=== PATIENT | male | born 1985 | race Caucasian/White ===

== ENCOUNTER 2018-06-15 13:54 | Emergency (ER) | payer SELFPAY ==
[2018-06-15] MEDS ORDERED: LIDOCAINE 1% 20 ML MDV ONE (14:41)
[2018-06-15] MEDS ORDERED: LIDOCAINE 1% W/EPI 1:100,000 MDV 50 ML VIAL ONE (14:41)
--- NOTE | 2018-06-15 15:00 | ER ---
Nurse's Notes [facility] Name: Juan J March Age: 32 yrs Sex: Male : 1985 Arrival Date: 06/15/2018 Time: 13:57 Bed 14 Private MD: Diagnosis: Cutaneous abscess of back [any part, except buttock];Pilonidal sinus with abscess;Pilonidal cyst with abscess Presentation: 06/15 13:59 Presenting complaint: Patient states: pilonidal cyst started yesterday. Transition of sv care: patient was not received from another setting of care. Onset of symptoms was June 14, 2018. Care prior to arrival: None. 13:59 Method Of Arrival: Ambulatory sv 13:59 Acuity: EDUARDO 3 sv 14:26 Risk Assessment: Do you want to hurt yourself or someone else? Patient reports no jl7 desire to harm self or others. Initial Sepsis Screen: Does the patient meet any 2 criteria? No. Patient's initial sepsis screen is negative. Does the patient have a suspected source of infection? No. Patient's initial sepsis screen is negative. Triage Assessment: 14:01 General: Appears in no apparent distress. uncomfortable, Behavior is calm, cooperative, sv appropriate for age. Pain: Complains of pain in buttocks. Neuro: Level of Consciousness is awake, alert, obeys commands, Oriented to person, place, time, situation, Gait is steady. Respiratory: Respiratory effort is even, unlabored, Respiratory pattern is regular, symmetrical. Historical: - Allergies: 14:01 Morphine; sv - PMHx: 14:01 Pilonidal cyst; sv - PSHx: 14:01 None; sv - Immunization history:: Adult Immunizations not up to date. - Social history:: Smoking status: unknown. - Ebola Screening: : No symptoms or risks identified at this time. - Family history:: not pertinent. Screenin:26 Abuse screen: Denies threats or abuse. Denies injuries from another. Nutritional jl7 screening: No deficits noted. Tuberculosis screening: No symptoms or risk factors identified. Fall Risk None identified. Assessment: 14:26 General: Appears in no apparent distress. uncomfortable, Behavior is calm, cooperative, jl7 appropriate for age. Pain: Complains of pain in coccyx Pain does not radiate. Pain currently is 8 out of 10 on a pain scale. Neuro: Level of Consciousness is awake, alert, obeys commands, Oriented to person, place, time, situation. Cardiovascular: Patient's skin is warm and dry. Respiratory: Airway is patent Respiratory effort is even, unlabored, Respiratory pattern is regular, symmetrical. Derm: Skin is pink, warm \T\ dry. Abscess located on coccyx is half dollar sized, has no drainage, is hot to touch, is red, is raised. 15:30 Reassessment: Patient appears in no apparent distress at this time. Patient and/or jl7 family updated on plan of care and expected duration. Pain level reassessed. Patient is alert, oriented x 3, equal unlabored respirations, skin warm/dry/pink. Vital Signs: 14:00 BP 152 / 96; Pulse 84; Resp 16; Pulse Ox 95% ; Weight 90.72 kg; Height 5 ft. (152.40 sv cm); Pain 8/10; 15:30 BP 149 / 91; Pulse 83; Resp 16; Pulse Ox 100% on R/A; Pain 3/10; jl7 14:00 Body Mass Index 39.06 (90.72 kg, 152.40 cm) sv ED Course: 13:57 Patient arrived in ED. mr 14:00 Triage completed. sv 14:01 Arm band placed on. 14:22 Manish Reza, CATRACHITO is Primary Nurse. [facility] 14:26 Patient has correct armband on for positive identification. Placed in gown. Bed in low jl7 position. Call light in reach. Side rails up X 1. 14:27 Jhon Begum MD is Attending Physician. [facility] 14:58 Nathan Velarde MD is Referral Physician. [facility] 15:40 Assist provider with I \T\ D: of an abscess on pilonidal cyst Set up I\T\D tray. Performed jl 7 by Jhon Begum MD Culture sent to lab. Wound packed. iodoform gauze, Dressing with 4X4s, Patient tolerated well. Patient did not have IV access during this emergency room visit. Administered Medications: 15:07 Drug: Lidocaine-Epinephrine -1%: (1:100,000) 10 ml {Note: administered by Dr. sedrick Begum.} Volume: 20 ml; Route: Infiltration; 15:39 Follow up: Response: No adverse reaction jl7 15:39 Drug: Doxycycline 200 mg Route: PO; jl7 15:39 Follow up: Response: Medication administered at discharge. jl7 15:39 Drug: Bactrim 160 mg-800 mg (DS) 160 mg Route: PO; jl7 15:39 Follow up: Response: Medication administered at discharge. jl7 Outcome: 14:59 Discharge ordered by . amy 15:40 Discharged to home ambulatory, with family. sedrick 15:40 Condition: stable 15:40 Discharge instructions given to patient, family, Instructed on discharge instructions, follow up and referral plans. medication usage, Demonstrated understanding of instructions, follow-up care, medications, Prescriptions given X 3. 15:45 Patient left the ED. jl7 Signatures: Rufina Phipps, RN Jhon Gresham MD MD cha Rivera, Mary mr Leal, Jahala, RN RN jl7 Corrections: (The following items were deleted from the chart) 15:43 15:40 No provider procedures requiring assistance completed. jl7 jl7
--- NOTE | 2018-06-15 15:00 | EDPHYS ---
Physician Documentation [facility] Name: Juan J March Age: 32 yrs Sex: Male : 1985 Arrival Date: 06/15/2018 Time: 13:57 Bed 14 Private MD: ED Physician Jhon Begum HPI: 06/15 14:55 This 32 yrs old Male presents to ER via Ambulatory with complaints of Abscess.amy 14:55 The patient presents with an abscess of the coccyx, The patient presents with amy cellulitis of the coccyx. Description: erythematous, hot, swollen. Onset: The symptoms/episode began/occurred 1 week(s) ago. Associated signs and symptoms: The patient has no apparent associated signs or symptoms. Severity of symptoms: At their worst the symptoms were mild, moderate, in the emergency department the symptoms are unchanged. The patient has experienced similar episodes in the past, several times. Historical: - Allergies: 14: Morphine; sv - PMHx: 14:01 Pilonidal cyst; sv - PSHx: 14:01 None; sv - Immunization history:: Adult Immunizations not up to date. - Social history:: Smoking status: unknown. - Ebola Screening: : No symptoms or risks identified at this time. - Family history:: not pertinent. ROS: 14:55 Constitutional: Negative for fever, chills, and weight loss, Eyes: Negative for injury, amy pain, redness, and discharge, ENT: Negative for injury, pain, and discharge, Neck: Negative for injury, pain, and swelling, Cardiovascular: Negative for chest pain, palpitations, and edema, Respiratory: Negative for shortness of breath, cough, wheezing, and pleuritic chest pain, Abdomen/GI: Negative for abdominal pain, nausea, vomiting, diarrhea, and constipation, Back: Negative for injury and pain, : Negative for injury, bleeding, discharge, and swelling, MS/Extremity: Negative for injury and deformity, Neuro: Negative for headache, weakness, numbness, tingling, and seizure, Psych: Negative for depression, anxiety, suicide ideation, homicidal ideation, and hallucinations, Allergy/Immunology: Negative for hives, rash, and allergies, Endocrine: Negative for neck swelling, polydipsia, polyuria, polyphagia, and marked weight changes, Hematologic/Lymphatic: Negative for swollen nodes, abnormal bleeding, and unusual bruising. 14:55 Skin: Positive for abscess, swelling, of the coccyx. Exam: 14:55 Constitutional: This is a well developed, well nourished patient who is awake, alert, amy and in no acute distress. Head/Face: Normocephalic, atraumatic. Eyes: Pupils equal round and reactive to light, extra-ocular motions intact. Lids and lashes normal. Conjunctiva and sclera are non-icteric and not injected. Cornea within normal limits. Periorbital areas with no swelling, redness, or edema. ENT: Nares patent. No nasal discharge, no septal abnormalities noted. Tympanic membranes are normal and external auditory canals are clear. Oropharynx with no redness, swelling, or masses, exudates, or evidence of obstruction, uvula midline. Mucous membranes moist. Neck: Trachea midline, no thyromegaly or masses palpated, and no cervical lymphadenopathy. Supple, full range of motion without nuchal rigidity, or vertebral point tenderness. No Meningismus. Chest/axilla: Normal chest wall appearance and motion. Nontender with no deformity. No lesions are appreciated. Cardiovascular: Regular rate and rhythm with a normal S1 and S2. No gallops, murmurs, or rubs. Normal PMI, no JVD. No pulse deficits. Respiratory: Lungs have equal breath sounds bilaterally, clear to auscultation and percussion. No rales, rhonchi or wheezes noted. No increased work of breathing, no retractions or nasal flaring. Abdomen/GI: Soft, non-tender, with normal bowel sounds. No distension or tympany. No guarding or rebound. No evidence of tenderness throughout. Back: No spinal tenderness. No costovertebral tenderness. Full range of motion. Male : Normal genitalia with no discharge or lesions. 14:55 Skin: abscess, that is moderate sized, of the coccyx, cellulitis, that is mild, that is moderate. Vital Signs: 14:00 BP 152 / 96; Pulse 84; Resp 16; Pulse Ox 95% ; Weight 90.72 kg; Height 5 ft. (152.40 sv cm); Pain 8/10; 15:30 BP 149 / 91; Pulse 83; Resp 16; Pulse Ox 100% on R/A; Pain 3/10; jl7 14:00 Body Mass Index 39.06 (90.72 kg, 152.40 cm) MDM: 14:27 Patient medically screened. [facility] 14:57 Data reviewed: vital signs, nurses notes. [facility] 06/15 15:41 Order name: Wound Culture [facility] [place] 06/15 14:55 Order name: Suture Tray at Bedside; Complete Time: 15:08 [facility] 06/15 14:55 Order name: Dressing - Wound; Complete Time: 15:08 [facility] 06/15 14:55 Order name: Gloves, Sterile; Complete Time: 15:08 [facility] Administered Medications: 15:07 Drug: Lidocaine-Epinephrine -1%: (1:100,000) 10 ml {Note: administered by Dr. sedrick Begum.} Volume: 20 ml; Route: Infiltration; 15:39 Follow up: Response: No adverse reaction [facility] [place] 15:39 Drug: Doxycycline 200 mg Route: PO; [facility] [place] 15:39 Follow up: Response: Medication administered at discharge. [facility] [place] 15:39 Drug: Bactrim 160 mg-800 mg (DS) 160 mg Route: PO; [facility] [place] 15:39 Follow up: Response: Medication administered at discharge. [facility] [place] Disposition: 06/15/18 14:59 Discharged to Home. Impression: Cutaneous abscess of back [any part, except buttock], Pilonidal sinus with abscess, Pilonidal cyst with abscess. - Condition is Stable. - Discharge Instructions: Skin Abscess, Incision and Drainage, Pilonidal Cyst, Skin Abscess, [id number], Incision and Drainage of a Pilonidal Cyst, Care After, Incision and Drainage, Care After. - Prescriptions for Doxycycline Hyclate 100 mg Oral Tablet - take 1 tablet by ORAL route every 12 hours; 20 tablet. Tramadol 50 mg Oral Tablet - take 1 tablet by ORAL route every 8 hours as needed; 24 tablet. Bactrim DS 800- 160 mg Oral Tablet - take 1 tablet by ORAL route every 12 hours for 7 days; 14 tablet. - Medication Reconciliation Form, Thank You Letter, Antibiotic Education, Prescription Opioid Use, Work release form form. - Follow up: Nathan Velarde MD; When: 2 - 3 days; Reason: Recheck today's complaints, Continuance of care, Re-evaluation by your physician. - Problem is new. - Symptoms have improved. Signatures: Dispatcher [employer] Rufina Dubois RN RN sv Anderson, Corey, MD MD cha Reza, Jahala, RN RN jl7 Corrections: (The following items were deleted from the chart) 15:45 14:59 06/15/2018 14:59 Discharged to Home. Impression: Cutaneous abscess of back [any jl7 part, except buttock]; Pilonidal sinus with abscess; Pilonidal cyst with abscess. Condition is Stable. Forms are Medication Reconciliation Form, Thank You Letter, Antibiotic Education, Prescription Opioid Use. Follow up: Nathan Velarde; When: 2 - 3 days; Reason: Recheck today's complaints, Continuance of care, Re-evaluation by your physician. Problem is new. Symptoms have improved. amy
[2018-06-15] MEDS ORDERED: DOXYCYCLINE 100 MG CAP PO ONE (15:27)
[2018-06-15] MEDS ORDERED: SMZ./TMP. 800/160 MG TABLET ONE (15:27)
== END 2018-06-15 15:45 | disposition home or self-care (01) ==
LOC: ER 13:54
PROC: 0H96XZZ Drainage of Back Skin, External Approach (ICD-10-PCS; principal; 2018-06-15)
DX: L02.219 Cutaneous abscess of trunk, unspecified (principal); L05.01 Pilonidal cyst with abscess; Z88.5 Allergy status to narcotic agent
CPT/HCPCS: 87070; 87205; 99284

== ENCOUNTER 2018-07-05 12:25 | Emergency (ER) | payer SELFPAY ==
[2018-07-05] MEDS ORDERED: TETRACAINE HCL 0.5% 2ML OPTH ONE (13:15)
[2018-07-05] MEDS ORDERED: Ringers Lactate 1,000 ML IV ONE (13:50)
--- NOTE | 2018-07-05 14:57 | ER ---
Nurse's Notes [facility] Name: Juan J March Age: 32 yrs Sex: Male : 1985 Arrival Date: 07/05/2018 Time: 12:29 Bed 25 Private MD: None, None Diagnosis: Keratitis-Right eye, ultraviolet Presentation: 07/05 12:31 Presenting complaint: Patient states: I was doing some fabrication on my car last night la1 and my right eye started hurting. This morning when I took my contact out the pain is much worse. Pt states vision is at baseline but currently has right eye taped shut. Transition of care: patient was not received from another setting of care. Onset of symptoms was July 05, 2018. Risk Assessment: Do you want to hurt yourself or someone else? Patient reports no desire to harm self or others. Initial Sepsis Screen: Does the patient meet any 2 criteria? No. Patient's initial sepsis screen is negative. Does the patient have a suspected source of infection? No. Patient's initial sepsis screen is negative. Care prior to arrival: None. 12:31 Method Of Arrival: Ambulatory la1 12:31 Acuity: EDUARDO 4 la1 Historical: - Allergies: 12:32 Morphine; la1 - PMHx: 12:32 Pilonidal cyst; la1 - Immunization history:: Adult Immunizations up to date. - Social history:: Smoking status: Patient uses tobacco products, smokes one pack cigarettes per day. - Ebola Screening: : No symptoms or risks identified at this time. Screenin:10 Abuse screen: Denies threats or abuse. Nutritional screening: No deficits noted. tl3 Tuberculosis screening: No symptoms or risk factors identified. Fall Risk None identified. Assessment: 13:10 General: Appears uncomfortable, well groomed, well developed, well nourished, Behavior tl3 is calm, cooperative, appropriate for age. Pain: Complains of pain in right eye Pain at worst was 10 out of 10 on a pain scale. Neuro: Level of Consciousness is awake, alert, obeys commands, Oriented to person, place, time, situation, Appropriate for age. Cardiovascular: Patient's skin is warm and dry. Respiratory: Airway is patent Respiratory effort is even, unlabored, Respiratory pattern is regular, symmetrical. GI: No signs and/or symptoms were reported involving the gastrointestinal system. : No signs and/or symptoms were reported regarding the genitourinary system. 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 14:00 Reassessment: No changes from previously documented assessment. Patient and/or family tl3 updated on plan of care and expected duration. Pain level reassessed. Patient is alert, oriented x 3, equal unlabored respirations, skin warm/dry/pink. no needs at this time. 15:29 Reassessment: Patient appears in no apparent distress at this time. No changes from tl3 previously documented assessment. Patient and/or family updated on plan of care and expected duration. Pain level reassessed. Patient is alert, oriented x 3, equal unlabored respirations, skin warm/dry/pink. pt being discharged Patient states feeling better. Vital Signs: 12:32 BP 143 / 91; Pulse 71; Resp 18; Temp 98.4; Pulse Ox 98% on R/A; Weight 90.72 kg; Height la1 5 ft. 8 in. (172.72 cm); 14:55 BP 149 / 95 RA (auto/reg); Pulse 86; Pulse Ox 99% on R/A; jp3 12:32 Body Mass Index 30.41 (90.72 kg, 172.72 cm) la1 Visual Acuity: 14:39 Left Eye Visual acuity 20/25, ; Right Eye Visual acuity 20/200, ; Without Lenses; tl3 ED Course: 12:29 Patient arrived in ED. mr 12:29 None, None is Private Physician. mr 12:32 Triage completed. la1 12:33 Arm band placed on left wrist. la1 12:58 Jhon Garza PA is PHCP. cp 12:58 Alex Reyes MD is Attending Physician. cp 13:01 Iris Egan, CATRACHITO is Primary Nurse. tl3 13:10 Patient has correct armband on for positive identification. Bed in low position. Call tl3 light in reach. Adult w/ patient. 13:10 No provider procedures requiring assistance completed. Eye irrigation of right eye w/ tl3 Leora lens IV tubing. 14:54 Anh Laurent MD is Referral Physician. cp 15:29 Patient did not have IV access during this emergency room visit. tl3 Administered Medications: 13:15 Drug: Tetracaine Drops 0.5 % 1 drops Route: Ophthalmic; Site: right eye; tl3 14:07 Follow up: Response: Marked relief of symptoms tl3 14:02 Drug: Lactated Ringers Solution 1000 ml {Note: per leora lens to right eye.} Route: tl3 IV; Rate: 1000 bolus; Site: Other; Delivery: Primary tubing; 14:03 Follow up: Response: No adverse reaction; IV Intake: 1000ml tl3 14:49 Drug: Gentamicin Drops 0.3 % 1 drops Route: Ophthalmic; Site: right eye; tl3 Intake: 14:03 IV: 1000ml; Total: 1000ml. tl3 Outcome: 14:56 Discharge ordered by MD. cp 15:29 Discharged to home ambulatory. tl3 15:29 Condition: stable 15:29 Discharge instructions given to patient, family, Instructed on discharge instructions, follow up and referral plans. medication usage, Demonstrated understanding of instructions, follow-up care, medications, stressed importance of follow up with eye doctor 15:31 Patient left the ED. tl3 Signatures: Brenda Nunes Lee, RN RN la1 Jhon Garza PA PA cp Lowrey, Tammy, CATRACHITO RN tl3 Mahad Pagan jp3
[2018-07-05] MEDS ORDERED: GENTAMICIN 0.3% OPTH DROP 5ML ONE (14:58)
--- NOTE | 2018-07-05 14:58 | EDPHYS ---
Physician Documentation [facility] Name: Juan J March Age: 32 yrs Sex: Male : 1985 Arrival Date: 07/05/2018 Time: 12:29 Bed 25 Private MD: None, None ED Physician Alex Reyes HPI: 07/05 13:35 This 32 yrs old Male presents to ER via Ambulatory with complaints of Foreign cp Body In Eye. 13:35 The patient is experiencing burning, foreign body sensation, pain, redness, to the cp right eye. Onset: The symptoms/episode began/occurred yesterday, and became worse this morning. Duration: the symptoms are continuous. Associated signs and symptoms: Pertinent negatives: dizziness, ear ache, fever, headache. Patient wears soft contacts. 13:35 Severity of symptoms: in the emergency department the symptoms are unchanged despite cp home interventions. 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 Patient wears contact lenses to correct vision and admits to wearing lenses overnight. Historical: - Allergies: 12:32 Morphine; la1 - PMHx: 12:32 Pilonidal cyst; la1 - Immunization history:: Adult Immunizations up to date. - Social history:: Smoking status: Patient uses tobacco products, smokes one pack cigarettes per day. - Ebola Screening: : No symptoms or risks identified at this time. ROS: 13:40 Constitutional: Negative for body aches, chills, fever, poor PO intake. cp 13:40 ENT: Negative for injury, pain, and discharge. cp 13:40 Eyes: Positive for foreign body sensation, pain, photophobia, redness, visual disturbance, of the right eye, Negative for discharge. 13:40 Cardiovascular: Negative for chest pain, palpitations. 13:40 Respiratory: Negative for cough, shortness of breath, wheezing. 13:40 Abdomen/GI: Negative for abdominal pain, nausea, vomiting, and diarrhea. 13:40 Skin: Negative for cellulitis, rash. 13:40 Neuro: Negative for altered mental status, headache, weakness. 13:40 All other systems are negative. Exam: 13:47 Constitutional: The patient appears in no acute distress, alert, awake, non-toxic, well cp developed, well nourished, uncomfortable. 13:47 Head/Face: Normocephalic, atraumatic. cp 13:47 Eyes: Periorbital structures: appear normal, no erythema, no swelling, Pupils: equal, round, and reactive to light and accomodation, Extraocular movements: intact throughout, Conjunctiva: injected, in the right eye, tearing noted, in right eye, Corneas: foreign body, is not appreciated, Anterior chamber: normal, Lids and lashes: appear normal, bilaterally, Examination of the other eye reveals no obvious gross abnormality. 13:47 ENT: External ear(s): are unremarkable, Ear canal(s): are normal, clear, TM's: dullness, bilaterally, Nose: is normal, Mouth: is normal, Posterior pharynx: is normal, airway is patent, no erythema, no exudate, Voice: is normal. 13:47 Neck: ROM/movement: is normal, is supple, without pain, no range of motions limitations, no meningismus, no nuchal rigidity, Lymph nodes: no appreciated lymphadenopathy. 13:47 Chest/axilla: Inspection: normal. 13:47 Cardiovascular: Rate: normal, Rhythm: regular. 13:47 Respiratory: the patient does not display signs of respiratory distress, Respirations: normal. 13:47 Skin: cellulitis, is not appreciated, no rash present. 13:47 Neuro: Orientation: to person, place \T\ time. Mentation: is normal, Motor: moves all fours, strength is normal, Gait: is steady, at a normal pace, without difficulty. 14:42 Visual Acuity: I have reviewed the nursing documentation. cp Vital Signs: 12:32 BP 143 / 91; Pulse 71; Resp 18; Temp 98.4; Pulse Ox 98% on R/A; Weight 90.72 kg; Height la1 5 ft. 8 in. (172.72 cm); 14:55 BP 149 / 95 RA (auto/reg); Pulse 86; Pulse Ox 99% on R/A; jp3 12:32 Body Mass Index 30.41 (90.72 kg, 172.72 cm) la1 Visual Acuity: 14:39 Left Eye Visual acuity 20/25, ; Right Eye Visual acuity 20/200, ; Without Lenses; tl3 MDM: 12:58 Patient medically screened. cp 14:55 Data reviewed: vital signs, nurses notes. cp 14:55 Counseling: I had a detailed discussion with the patient and/or guardian regarding: the cp historical points, exam findings, and any diagnostic results supporting the discharge/admit diagnosis, the need for outpatient follow up, an opthalmologist, to return to the emergency department if symptoms worsen or persist or if there are any questions or concerns that arise at home. Response to treatment: the patient's symptoms have markedly improved after treatment. ED course: Patient with left contact lens in place during visual acuity testing. Patient instructed on no use of contact lenses and to f/u with ophthalmology next 1-2 days. 07/05 13:30 Order name: Visual Acuity; Complete Time: 14:45 cp Administered Medications: 13:15 Drug: Tetracaine Drops 0.5 % 1 drops Route: Ophthalmic; Site: right eye; tl3 14:07 Follow up: Response: Marked relief of symptoms tl3 14:02 Drug: Lactated Ringers Solution 1000 ml {Note: per leora lens to right eye.} Route: tl3 IV; Rate: 1000 bolus; Site: Other; Delivery: Primary tubing; 14:03 Follow up: Response: No adverse reaction; IV Intake: 1000ml tl3 14:49 Drug: Gentamicin Drops 0.3 % 1 drops Route: Ophthalmic; Site: right eye; tl3 Disposition: 17:49 Co-signature as Attending Physician, Alex Reyes MD. Disposition: 07/05/18 14:56 Discharged to Home. Impression: Keratitis - Right eye, ultraviolet. - Condition is Stable. - Prescriptions for Gentamicin 0.3 % Ophthalmic Drops - instill 1 drop by OPHTHALMIC route every 4 hours for 7 days instill drops in right eye as directed; 1 bottle. ketorolac 0.5 % Ophthalmic drops - instill 1 drop by OPHTHALMIC route 4 times per day for 4 days; 1 bottle. - Work release form form. - Follow up: Anh Laurent MD; When: Tomorrow; Reason: Recheck today's complaints. - Problem is new. - Symptoms have improved. - Notes: do not wear contact lenses in right eye until seen and evaluated by eye doctor Signatures: Brendan Rooney RN RN la1 Jhon Garza PA PA cp Starr, Gregory, MD MD Iris Egan RN RN tl3 Corrections: (The following items were deleted from the chart) 14:57 14:56 07/05/2018 14:56 Discharged to Home. Impression: Keratitis - Right eye, UV. cp Condition is Stable. Prescriptions for Gentamicin 0.3 % Ophthalmic Drops - instill 1 drop by OPHTHALMIC route every 4 hours for 7 days instill drops in right eye as directed; 1 bottle. and Forms are Medication Reconciliation Form, Thank You Letter, Antibiotic Education, Prescription Opioid Use. Follow up: Anh Laurent; When: Tomorrow; Reason: Recheck today's complaints. Problem is new. Symptoms have improved. cp 15:31 14:57 07/05/2018 14:56 Discharged to Home. Impression: Keratitis - Right eye, tl3 ultraviolet. Condition is Stable. Discharge Instructions: Ultraviolet Keratitis. Prescriptions for Gentamicin 0.3 % Ophthalmic Drops - instill 1 drop by OPHTHALMIC route every 4 hours for 7 days instill drops in right eye as directed; 1 bottle. and Forms are Medication Reconciliation Form, Thank You Letter, Antibiotic Education, Prescription Opioid Use. Follow up: Anh Laurent; When: Tomorrow; Reason: Recheck today's complaints. Problem is new. Symptoms have improved. cp
== END 2018-07-05 15:31 | disposition home or self-care (01) ==
LOC: ER 12:25
DX: H16.8 Other keratitis (principal); F17.210 Nicotine dependence, cigarettes, uncomplicated; Z88.5 Allergy status to narcotic agent
CPT/HCPCS: 99283

== ENCOUNTER 2018-08-05 10:00 | Emergency (ER) | payer SELFPAY ==
--- NOTE | 2018-08-05 11:05 | ER ---
Nurse's Notes [facility] Name: Juan J March Age: 32 yrs Sex: Male : 1985 Arrival Date: 08/05/2018 Time: 10:02 Bed 11 Private MD: None, None Diagnosis: Acute sinusitis;Bronchitis, not specified as acute or chronic Presentation: 08/05 10:20 Presenting complaint: Patient states: upper respiratory symptoms, cough ,headaches, X iw 10 days, denies fever. Transition of care: patient was not received from another setting of care. Onset of symptoms was July 26, 2018. Risk Assessment: Do you want to hurt yourself or someone else? Patient reports no desire to harm self or others. 10:20 Method Of Arrival: Ambulatory iw 10:20 Acuity: EDUARDO 4 iw 10:20 Initial Sepsis Screen: Does the patient meet any 2 criteria? No. Patient's initial iw sepsis screen is negative. Does the patient have a suspected source of infection? No. Patient's initial sepsis screen is negative. Care prior to arrival: None. Triage Assessment: 10:25 General: Appears in no apparent distress. Behavior is calm. Respiratory: Reports iw shortness of breath cough that is. Historical: - Allergies: 10:21 Morphine; iw - Home Meds: 10:21 None [Active]; iw - PMHx: 10:21 Pilonidal cyst; iw - PSHx: 10:21 None; iw - Immunization history:: Adult Immunizations not up to date. - Social history:: Smoking status: Patient uses tobacco products, smokes one pack cigarettes per day. - Ebola Screening: : Patient negative for fever greater than or equal to 101.5 degrees Fahrenheit, and additional compatible Ebola Virus Disease symptoms Patient denies exposure to infectious person Patient denies travel to an Ebola-affected area in the 21 days before illness onset No symptoms or risks identified at this time. Screenin:36 Abuse screen: Denies threats or abuse. Denies injuries from another. Nutritional iw screening: No deficits noted. Tuberculosis screening: No symptoms or risk factors identified. Fall Risk None identified. Assessment: 10:25 General: Appears in no apparent distress. Behavior is calm, cooperative. Pain: iw Complains of pain in head and left ear and right ear and nose. Neuro: Level of Consciousness is awake, alert, obeys commands, Moves all extremities. Cardiovascular: Patient's skin is warm and dry. Respiratory: Airway is patent Breath sounds are clear bilaterally. GI: No signs and/or symptoms were reported involving the gastrointestinal system. Derm: Skin is intact, is healthy with good turgor. Musculoskeletal: Range of motion: intact in all extremities. Vital Signs: 10:21 BP 135 / 87; Resp 16; Temp 98.8; Pulse Ox 97% ; Weight 81.65 kg; Height 5 ft. 8 in. iw (172.72 cm); Pain /10; 10:21 Body Mass Index 27.37 (81.65 kg, 172.72 cm) iw ED Course: 10:02 Patient arrived in ED. mr 10:03 None, None is Private Physician. mr 10:08 Kennedi [facility]-C [facility]. snw 10:08 Jhon Begum MD is Attending Physician. snw 10:21 Triage completed. iw 10:22 Keila Valdez, CATRACHITO is Primary Nurse. iw 10:22 Arm band placed on. iw 10:30 Patient has correct armband on for positive identification. iw 10:35 No provider procedures requiring assistance completed. Patient did not have IV access iw during this emergency room visit. Administered Medications: 11:30 Drug: predniSONE 40 mg Route: PO; dm5 11:30 Drug: Pepcid 20 mg Route: PO; dm5 11:30 Drug: Zithromax 500 mg Route: PO; dm5 11:30 Drug: Motrin 400 mg Route: PO; dm5 Outcome: 11:04 Discharge ordered by . snw 11:36 Discharged to home ambulatory. iw 11:36 Condition: good 11:36 Discharge instructions given to patient, Instructed on discharge instructions, follow up and referral plans. medication usage, Demonstrated understanding of instructions, follow-up care, medications, Prescriptions given X 4. 11:37 Patient left the ED. dm5 Signatures: Zoila Abbott, RN RN dm5 Kennedi Lopez FNP-C FNP-Emanuel Brenda Nunes mr Keila Valdez, CATRACHITO RN iw
--- NOTE | 2018-08-05 11:05 | EDPHYS ---
Physician Documentation [facility] Name: Juan J March Age: 32 yrs Sex: Male : 1985 Arrival Date: 08/05/2018 Time: 10:02 Bed 11 Private MD: None, None ED Physician Jhon Begum HPI: 08/05 11:05 This 32 yrs old Male presents to ER via Ambulatory with complaints of snw Congestion, Headache. Historical: - Allergies: 10:21 Morphine; iw - Home Meds: 10:21 None [Active]; iw - PMHx: 10:21 Pilonidal cyst; iw - PSHx: 10:21 None; iw - Immunization history:: Adult Immunizations not up to date. - Social history:: Smoking status: Patient uses tobacco products, smokes one pack cigarettes per day. - Ebola Screening: : Patient negative for fever greater than or equal to 101.5 degrees Fahrenheit, and additional compatible Ebola Virus Disease symptoms Patient denies exposure to infectious person Patient denies travel to an Ebola-affected area in the 21 days before illness onset No symptoms or risks identified at this time. ROS: 11:07 Eyes: Negative for injury, pain, redness, and discharge, Neck: Negative for injury, snw pain, and swelling, Cardiovascular: Negative for chest pain, palpitations, and edema, Abdomen/GI: Negative for abdominal pain, nausea, vomiting, diarrhea, and constipation, Back: Negative for injury and pain, : Negative for injury, bleeding, discharge, and swelling, MS/Extremity: Negative for injury and deformity, Skin: Negative for injury, rash, and discoloration, Neuro: Negative for weakness, numbness, tingling, and seizure, + headache 11:07 Constitutional: Positive for body aches, chills, malaise. 11:07 ENT: Positive for ear pain, of the right ear and left ear, rhinorrhea, sinus congestion, sinus pain. 11:07 Respiratory: Positive for cough, shortness of breath, wheezing. Exam: 11:06 Constitutional: This is a well developed, well nourished patient who is awake, alert, snw and in no acute distress. Eyes: Pupils equal round and reactive to light, extra-ocular motions intact. Lids and lashes normal. Conjunctiva and sclera are non-icteric and not injected. Cornea within normal limits. Periorbital areas with no swelling, redness, or edema. Neck: Trachea midline, no thyromegaly or masses palpated, and no cervical lymphadenopathy. Supple, full range of motion without nuchal rigidity, or vertebral point tenderness. No Meningismus. Chest/axilla: Normal chest wall appearance and motion. Nontender with no deformity. No lesions are appreciated. Cardiovascular: Regular rate and rhythm with a normal S1 and S2. No gallops, murmurs, or rubs. Normal PMI, no JVD. No pulse deficits. Abdomen/GI: Soft, non-tender, with normal bowel sounds. No distension or tympany. No guarding or rebound. No evidence of tenderness throughout. Back: No spinal tenderness. No costovertebral tenderness. Full range of motion. Skin: Warm, dry with normal turgor. Normal color with no rashes, no lesions, and no evidence of cellulitis. MS/ Extremity: Pulses equal, no cyanosis. Neurovascular intact. Full, normal range of motion. Neuro: Awake and alert, GCS 15, oriented to person, place, time, and situation. Cranial nerves II-XII grossly intact. Motor strength 5/5 in all extremities. Sensory grossly intact. Cerebellar exam normal. Normal gait. Psych: Awake, alert, with orientation to person, place and time. Behavior, mood, and affect are within normal limits. 11:06 Head/face: Noted is swelling, that is moderate, of the nose, Sinus tenderness, that is mild. 11:06 ENT: Ear canal(s): are normal, TM's: erythema, fluid levels, Nose: Nasal mucosa: edematous, nasal drainage, that is moderate, and is seen coming from both nares, that is purulent, Mouth: is normal, Posterior pharynx: is normal, Voice: is normal. 11:06 Respiratory: the patient does not display signs of respiratory distress, Respirations: shallow respirations, tachypnea, Breath sounds: bronchial sounds, decreased breath sounds, + upper airway congestion. bronchitic cough. Vital Signs: 10:21 BP 135 / 87; Resp 16; Temp 98.8; Pulse Ox 97% ; Weight 81.65 kg; Height 5 ft. 8 in. iw (172.72 cm); Pain 1/10; 10:21 Body Mass Index 27.37 (81.65 kg, 172.72 cm) iw MDM: 10:31 Patient medically screened. [facility] 11:05 Data reviewed: vital signs, nurses notes. Data interpreted: Pulse oximetry: on room air snw is 97 %. Interpretation: normal. Counseling: I had a detailed discussion with the patient and/or guardian regarding: the historical points, exam findings, and any diagnostic results supporting the discharge/admit diagnosis, the need for outpatient follow up, to return to the emergency department if symptoms worsen or persist or if there are any questions or concerns that arise at home. Special discussion: I have referred the patient to see his PCP for further evaluation of high blood pressure. Based on the history and exam findings, there is no indication for further emergent testing or inpatient evaluation. I discussed with the patient/guardian the need to see the primary care provider for further evaluation of the symptoms. Administered Medications: 11:30 Drug: predniSONE 40 mg Route: PO; dm5 11:30 Drug: Pepcid 20 mg Route: PO; dm5 11:30 Drug: Zithromax 500 mg Route: PO; dm5 11:30 Drug: Motrin 400 mg Route: PO; dm5 Disposition: 11:57 Co-signature as Attending Physician, Jhon Begum MD I agree with the assessment and [facility] plan of care. Disposition: 08/05/18 11:04 Discharged to Home. Impression: Acute sinusitis, Bronchitis, not specified as acute or chronic. - Condition is Stable. - Discharge Instructions: Acute Bronchitis, Adult, Fever, Adult, Hypertension, How to Use an Inhaler, Sinusitis, Adult, Cool Mist Vaporizer, Cough, Adult. - Prescriptions for Zyrtec 10 mg Oral Tablet - take 1 tablet by ORAL route once daily As needed; 20 tablet. Prednisone 20 mg Oral Tablet - take 2 tablet by ORAL route once daily for 5 days; 10 tablet. Albuterol Sulfate 90 mcg/actuation - inhale 1-2 puff by INHALATION route every 4-6 hours; 1 Inhaler. Pepcid 20 mg Oral Tablet - take 1 tablet by ORAL route once daily; 20 tablet. Zithromax 500 mg Oral Tablet - take 1 tablet by ORAL route once daily for 5 days; 5 tablet. - Work release form, Medication Reconciliation Form, Thank You Letter, Antibiotic Education, Prescription Opioid Use form. - Follow up: Private Physician; When: 2 - 3 days; Reason: Recheck today's complaints, Continuance of care, Re-evaluation by your physician. Follow up: Emergency Department; When: As needed; Reason: Worsening of condition. Signatures: Zoila Abbott, RN RN dm5 Jhon Begum MD MD cha Therrien, Shelly, SOCIAL SECRETARY-C SOCIAL SECRETARY-Csnw Keila Valdez RN RN iw Corrections: (The following items were deleted from the chart) 11:37 11:04 08/05/2018 11:04 Discharged to Home. Impression: Acute sinusitis; Bronchitis, not dm5 specified as acute or chronic. Condition is Stable. Forms are Medication Reconciliation Form, Thank You Letter, Antibiotic Education, Prescription Opioid Use. Follow up: Private Physician; When: 2 - 3 days; Reason: Recheck today's complaints, Continuance of care, Re-evaluation by your physician. Follow up: Emergency Department; When: As needed; Reason: Worsening of condition. snw
[2018-08-05] MEDS ORDERED: AZITHROMYCIN 250 MG TAB ONE (11:34)
[2018-08-05] MEDS ORDERED: IBUPROFEN 400 MG TAB ONE (11:34)
[2018-08-05] MEDS ORDERED: predniSONE 20 MG TAB ONE (11:35)
[2018-08-05] MEDS ORDERED: FAMOTIDINE 20 MG TAB ONE (11:35)
== END 2018-08-05 11:37 | disposition home or self-care (01) ==
LOC: ER 10:00
DX: J40 Bronchitis, not specified as acute or chronic (principal); J01.90 Acute sinusitis, unspecified; F17.210 Nicotine dependence, cigarettes, uncomplicated; Z88.5 Allergy status to narcotic agent
CPT/HCPCS: 99283; J7512

== ENCOUNTER 2019-07-20 14:21 | Emergency (ER) | payer SELFPAY ==
--- NOTE | 2019-07-20 15:26 | ER ---
Nurse's Notes [facility] Name: Juan J March Age: 33 yrs Sex: Male : 1985 Arrival Date: 07/20/2019 Time: 14:23 Bed 25 Private MD: Diagnosis: Acute pharyngitis;Acute bronchitis;Dental caries Presentation: 07/19 14:49 Chief complaint: Patient states: left side neck pain, has pain when swallowing , feels iw something moving on left side , pain radiates down to shoulder and to tongue. Coronavirus screen: The patient has NOT traveled to [place] in the past 14 days. Proceed with normal triage procedures. Ebola Screen: Patient negative for fever greater than or equal to 101.5 degrees Fahrenheit, and additional compatible Ebola Virus Disease symptoms Patient denies exposure to infectious person. Patient denies travel to an Ebola-affected area in the 21 days before illness onset. No symptoms or risks identified at this time. Initial Sepsis Screen: Does the patient meet any 2 criteria? No. Patient's initial sepsis screen is negative. Does the patient have a suspected source of infection? No. Patient's initial sepsis screen is negative. Risk Assessment: Do you want to hurt yourself or someone else? Patient reports no desire to harm self or others. 14:49 Method Of Arrival: Ambulatory iw 14:49 Acuity: EDUARDO 4 iw 15:03 Onset of symptoms was July 20, 2019. vc Historical: - Allergies: 14:54 Morphine; iw - Home Meds: 14:54 None [Active]; iw - PMHx: 14:54 Pilonidal cyst; iw - PSHx: 14:54 None; iw - Immunization history:: Adult Immunizations not up to date. - Social history:: Smoking status: Patient reports the use of cigarette tobacco products, smokes one-half pack cigarettes per day. Screenin:42 Abuse screen: Denies threats or abuse. Nutritional screening: No deficits noted. vc Tuberculosis screening: No symptoms or risk factors identified. Fall Risk None identified. Assessment: 15:02 General: Appears in no apparent distress. uncomfortable, Behavior is calm, cooperative, vc appropriate for age. Pain: Complains of pain in left side of throat, back of tongue, left side of neck. Neuro: Level of Consciousness is awake, alert, obeys commands, Oriented to person, place, time, situation. Cardiovascular: Capillary refill < 3 seconds Patient's skin is warm and dry. Respiratory: Airway is patent Respiratory effort is even, unlabored, Respiratory pattern is regular, symmetrical, Breath sounds are clear. GI: No signs and/or symptoms were reported involving the gastrointestinal system. : No signs and/or symptoms were reported regarding the genitourinary system. EENT: Throat is reddened with gag reflex present, Reports difficulty swallowing pain when swallowing. Derm: Skin is intact, is healthy with good turgor, Skin temperature is warm. Musculoskeletal: Circulation, motion, and sensation intact. Range of motion: intact in all extremities. 15:39 Reassessment: Patient and/or family updated on plan of care and expected duration. Pain vc level reassessed. Patient is alert, oriented x 3, equal unlabored respirations, skin warm/dry/pink. Patient states symptoms have not improved. Vital Signs: 14:49 BP 132 / 91; Pulse 73; Resp 16; Temp 97.9; Pulse Ox 97% on R/A; Weight 92.99 kg; Height iw 5 ft. 8 in. (172.72 cm); Pain 8/10; 15:30 BP 125 / 78; Pulse 77; Resp 17; Pulse Ox 97% on R/A; vc 14:49 Body Mass Index 31.17 (92.99 kg, 172.72 cm) iw ED Course: 14:23 Patient arrived in ED. rg4 14:23 Kennedi Lopez FNP-C is [facility]. snw 14:23 Jesus Butt MD is Attending Physician. snw 14:42 Liz Warren RN is Primary Nurse. vc 14:53 Triage completed. iw 14:54 Arm band placed on. iw 15:01 Strep Sent. vc 15:01 Flu Sent. vc 15:04 Patient has correct armband on for positive identification. Bed in low position. Call vc light in reach. Pulse ox on. NIBP on. 15:55 No provider procedures requiring assistance completed. Patient did not have IV access vc during this emergency room visit. Administered Medications: 15:29 Drug: Augmentin 875 mg Route: PO; ls4 15:45 Follow up: Response: No adverse reaction vc 15:29 Drug: GI Cocktail without - (Maalox Suspension 30 ml, Lidocaine Liquid 2 % 15 ls4 ml) Route: PO; 15:45 Follow up: Response: No adverse reaction; Marked relief of symptoms vc 15:30 Drug: predniSONE 40 mg Route: PO; ls4 15:45 Follow up: Response: No adverse reaction vc Outcome: 15:24 Discharge ordered by MD. lyles 15:55 Discharged to home ambulatory. vc 15:55 Condition: good 15:55 Discharge instructions given to patient, Instructed on discharge instructions, follow up and referral plans. medication usage, Demonstrated understanding of instructions, follow-up care, medications, Prescriptions given X 3. 15:56 Patient left the ED. vc Signatures: Kennedi Lopez, PLATE SHEAR OPERATOR-C PLATE SHEAR OPERATOR-Csnw Keila Valdez, RN RN Carol Taylor rg4 Mary Stroud RN RN ls4 Liz Warren RN RN vc
--- NOTE | 2019-07-20 15:26 | EDPHYS ---
Physician Documentation [facility] Name: Juan J March Age: 33 yrs Sex: Male : 1985 Arrival Date: 07/20/2019 Time: 14:23 Bed 25 Private MD: ED Physician Jesus Butt HPI: 07/19 15:33 This 33 yrs old Male presents to ER via Ambulatory with complaints of Sore snw Throat. 15:33 The patient presents with sore throat. The patient describes throat pain as catching to snw left lateral, mid pharynx. Pt states it began today. No fever, no vomiting. Onset: The symptoms/episode began/occurred suddenly, today. Severity of symptoms: At their worst the symptoms were moderate. Modifying factors: The symptoms are alleviated by nothing, the symptoms are aggravated by swallowing, talking. Associated signs and symptoms: The patient has no apparent associated signs or symptoms. The patient has not experienced similar symptoms in the past. The patient has not recently seen a physician. Historical: - Allergies: 14:54 Morphine; iw - Home Meds: 14:54 None [Active]; iw - PMHx: 14:54 Pilonidal cyst; iw - PSHx: 14:54 None; iw - Immunization history:: Adult Immunizations not up to date. - Social history:: Smoking status: Patient reports the use of cigarette tobacco products, smokes one-half pack cigarettes per day. ROS: 15:31 Constitutional: Negative for fever, chills, and weight loss, Eyes: Negative for injury, snw pain, redness, and discharge, Cardiovascular: Negative for chest pain, palpitations, and edema, Respiratory: Negative for shortness of breath, cough, wheezing, and pleuritic chest pain, Abdomen/GI: Negative for abdominal pain, nausea, vomiting, diarrhea, and constipation, Back: Negative for injury and pain, : Negative for injury, bleeding, discharge, and swelling, MS/Extremity: Negative for injury and deformity, Skin: Negative for injury, rash, and discoloration, Neuro: Negative for headache, weakness, numbness, tingling, and seizure, Psych: Negative for depression, anxiety, suicide ideation, homicidal ideation, and hallucinations. 15:31 ENT: Positive for sore throat. 15:31 Neck: Positive for pain with movement, tenderness, of the left submandibular area, left sternocleidomastoid and left anterior aspect of neck. Exam: 15:31 Constitutional: This is a well developed, well nourished patient who is awake, alert, snw and in no acute distress. Head/Face: Normocephalic, atraumatic. Eyes: Pupils equal round and reactive to light, extra-ocular motions intact. Lids and lashes normal. Conjunctiva and sclera are non-icteric and not injected. Cornea within normal limits. Periorbital areas with no swelling, redness, or edema. Chest/axilla: Normal chest wall appearance and motion. Nontender with no deformity. No lesions are appreciated. Cardiovascular: Regular rate and rhythm with a normal S1 and S2. No gallops, murmurs, or rubs. Normal PMI, no JVD. No pulse deficits. Respiratory: Lungs have equal breath sounds bilaterally, clear to auscultation and percussion. No rales, rhonchi or wheezes noted. No increased work of breathing, no retractions or nasal flaring. Abdomen/GI: Soft, non-tender, with normal bowel sounds. No distension or tympany. No guarding or rebound. No evidence of tenderness throughout. Back: No spinal tenderness. No costovertebral tenderness. Full range of motion. Skin: Warm, dry with normal turgor. Normal color with no rashes, no lesions, and no evidence of cellulitis. MS/ Extremity: Pulses equal, no cyanosis. Neurovascular intact. Full, normal range of motion. Neuro: Awake and alert, GCS 15, oriented to person, place, time, and situation. Cranial nerves II-XII grossly intact. Motor strength 5/5 in all extremities. Sensory grossly intact. Cerebellar exam normal. Normal gait. Psych: Awake, alert, with orientation to person, place and time. Behavior, mood, and affect are within normal limits. 15:31 ENT: TM's: are normal, Nose: is normal, Posterior pharynx: is normal, Dental exam: dental caries, that is severe, specifically in the lower left third molar (#17), Voice: is normal. 15:31 Neck: Exam negative for acute changes. Vital Signs: 14:49 BP 132 / 91; Pulse 73; Resp 16; Temp 97.9; Pulse Ox 97% on R/A; Weight 92.99 kg; Height iw 5 ft. 8 in. (172.72 cm); Pain 8/10; 15:30 BP 125 / 78; Pulse 77; Resp 17; Pulse Ox 97% on R/A; vc 14:49 Body Mass Index 31.17 (92.99 kg, 172.72 cm) iw MDM: 14:39 Patient medically screened. snw 15:32 Data reviewed: vital signs, nurses notes. Data interpreted: Pulse oximetry: on room air snw is 97 %. Interpretation: normal. Counseling: I had a detailed discussion with the patient and/or guardian regarding: the historical points, exam findings, and any diagnostic results supporting the discharge/admit diagnosis, lab results, the need for outpatient follow up, to return to the emergency department if symptoms worsen or persist or if there are any questions or concerns that arise at home. Special discussion: I have referred the patient to see his PCP for further evaluation of high blood pressure. Based on the history and exam findings, there is no indication for further emergent testing or inpatient evaluation. I discussed with the patient/guardian the need to see the ENT specialist for further evaluation of the symptoms. I discussed with the patient/guardian the need to see the primary care provider for further evaluation of the symptoms. 07/19 14:24 Order name: Flu; Complete Time: 15:30 snw 07/19 14:24 Order name: Strep; Complete Time: 15:30 snw 07/19 15:28 Order name: Throat Culture EDMS Administered Medications: 15:29 Drug: Augmentin 875 mg Route: PO; ls4 15:45 Follow up: Response: No adverse reaction vc 15:29 Drug: GI Cocktail without - (Maalox Suspension 30 ml, Lidocaine Liquid 2 % 15 ls4 ml) Route: PO; 15:45 Follow up: Response: No adverse reaction; Marked relief of symptoms vc 15:30 Drug: predniSONE 40 mg Route: PO; ls4 15:45 Follow up: Response: No adverse reaction vc Disposition: 07/20/19 15:24 Discharged to Home. Impression: Acute pharyngitis, Acute bronchitis, Dental caries. - Condition is Stable. - Discharge Instructions: Acute Bronchitis, Adult, Dental Pain, Pharyngitis, Steps to Quit Smoking, Smoking Hazards, Diet and Dental Disease, Rehydration, Adult, Preventive Dental Care, Adult. - Prescriptions for Augmentin 500- 125 mg Oral Tablet - take 1 tablet by ORAL route every 8 hours for 10 days; 30 tablet. Zyrtec 10 mg Oral Tablet - take 1 tablet by ORAL route once daily As needed; 20 tablet. Prednisone 20 mg Oral Tablet - take 2 tablet by ORAL route once daily for 5 days; 10 tablet. - Work release form, Medication Reconciliation Form, Thank You Letter, Antibiotic Education, Prescription Opioid Use form. - Follow up: Emergency Department; When: As needed; Reason: Worsening of condition. Follow up: Private Physician; When: 2 - 3 days; Reason: Recheck today's complaints, Continuance of care, Re-evaluation by your physician. Addendum: 07/26/2019 01:29 Co-signature as Attending Physician, Jesus Butt MD. m a2 Signatures: Dispatcher [employer] EDMS Kennedi Lopez, EDUCATIONAL AUDIOLOGIST-C EDUCATIONAL AUDIOLOGIST-Csnw Keila Valdez RN RN iw Jesus Butt MD MD ma2 Mary Stroud RN RN ls4 Liz Warren RN RN vc Corrections: (The following items were deleted from the chart) 07/19 15:56 15:24 07/20/2019 15:24 Discharged to Home. Impression: Acute pharyngitis; Acute vc bronchitis; Dental caries. Condition is Stable. Forms are Medication Reconciliation Form, Thank You Letter, Antibiotic Education, Prescription Opioid Use. Follow up: Emergency Department; When: As needed; Reason: Worsening of condition. Follow up: Private Physician; When: 2 - 3 days; Reason: Recheck today's complaints, Continuance of care, Re-evaluation by your physician. snw
[2019-07-20] MEDS ORDERED: predniSONE 20 MG TAB ONE (15:30)
[2019-07-20] MEDS ORDERED: MAGNE/ALUM HYDROXD 30 ML UCUP ONE (15:30)
[2019-07-20] MEDS ORDERED: AMOX/K CLAV 875 MG TAB ONE (15:31)
[2019-07-20] MEDS ORDERED: LIDOCAINE VISCOUS 2% SOLN 15 ML UDC ONE (15:31)
[2019-07-20 16:34] VITALS: TEMP 97.9; O2SAT 97
[2019-07-20 16:38] VITALS: BP 125/78
== END 2019-07-20 15:56 | disposition home or self-care (01) ==
LOC: ER 14:21
DX: J20.9 Acute bronchitis, unspecified (principal); K02.9 Dental caries, unspecified; F17.210 Nicotine dependence, cigarettes, uncomplicated; Z88.5 Allergy status to narcotic agent
CPT/HCPCS: 87070; 87081; 87804; 99284; J7512

== ENCOUNTER 2019-10-24 17:39 | Emergency (ER) | payer SELFPAY ==
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
[2019-10-24 18:28] VITALS: BP 162/104; TEMP 98.8; O2SAT 96
== END 2019-10-24 18:09 | disposition home or self-care (01) ==
LOC: ER 17:39
DX: H60.8X1 Other otitis externa, right ear (principal); F17.210 Nicotine dependence, cigarettes, uncomplicated; Z88.5 Allergy status to narcotic agent
CPT/HCPCS: 99282